=== PATIENT | female | born 1945 | race Caucasian/White ===

== ENCOUNTER 2022-04-18 09:04 | Outpatient (RCR) | payer MEDICARE | END 2022-05-15 | LOC: RESP 09:04 | PROVIDERS: ATTEND Internal Medicine | DX: J44.9 Chronic obstructive pulmonary disease, unspecified (principal) | CPT/HCPCS: 94626 ×6; G0238 ×6 ==

== ENCOUNTER 2022-05-16 10:02 | Outpatient (RCR) | payer MEDICARE | END 2022-06-12 | LOC: RESP 10:02 | PROVIDERS: ATTEND Internal Medicine | DX: J44.9 Chronic obstructive pulmonary disease, unspecified (principal) | CPT/HCPCS: 94626 ×7; G0238 ×7 ==

== ENCOUNTER 2022-06-13 14:49 | Outpatient (RCR) | payer MEDICARE | END 2022-07-13 | LOC: RESP 14:49 | PROVIDERS: ATTEND Internal Medicine | DX: J44.9 Chronic obstructive pulmonary disease, unspecified (principal) | CPT/HCPCS: 94626 ×3; G0238 ×3 ==

== ENCOUNTER → 2022-06-20 | Outpatient (CLI) | payer MEDICARE ==
[2022-06-20 08:21] LABS: ABG HCO3 29 mmol/L (22-26); ABG PCO2 40 mmHg (35-45); ABG PH 7.47 (7.35-7.45); ABG PO2 99 mmHg (80-105); ABG TCO2 30
== END ==
LOC: RESP 07:28
PROVIDERS: ATTEND Internal Medicine
DX: J44.9 Chronic obstructive pulmonary disease, unspecified (principal)
CPT/HCPCS: 36415; 36600; 82805

== ENCOUNTER 2022-08-15 14:20 | Outpatient (RCR) | payer MEDICARE | END 2022-09-12 | LOC: RESP 14:20 | DX: J42 Unspecified chronic bronchitis (principal); Z87.891 Personal history of nicotine dependence | CPT/HCPCS: 94626 ×3; G0238 ×3 ==